=== PATIENT | female | born 1965 | race Two or more races ===

== ENCOUNTER 2016-10-21 21:15 | Emergency (ER) | payer MEDICAID, OTHER ==
[~2016-10-21] VITALS: Ht 167.6 cm; Wt 77.1 kg
[2016-10-21 21:30] VITALS: BP 147/98
[2016-10-22] MEDS ORDERED: ACETAMINOPHEN/CODEINE#3 (300/30mg) TAB PO ONE (00:30)
== END 2016-10-22 00:27 | disposition home or self-care (01) ==
LOC: ER 21:32
DX: S40.011A Contusion of right shoulder, initial encounter (principal); M25.411 Effusion, right shoulder; W17.89XA Other fall from one level to another, initial encounter; Y93.89 Activity, other specified; Y99.8 Other external cause status; Y92.89 Other specified places as the place of occurrence of the external cause
CPT/HCPCS: 73030